=== PATIENT | male | born 1980 | race Caucasian/White ===

== ENCOUNTER 2017-09-03 11:11 | Emergency (ER) | payer BC, SELFPAY ==
[2017-09-03 11:12] VITALS: BP 125/68; PULSE 74; RESP 16; TEMP 36.2; O2SAT 99; BMI 19.2
--- NOTE | 2017-09-03 11:25 | EKG12_ITS ---
Test Reason : CP Blood Pressure : / mmHG Vent. Rate : 072 BPM Atrial Rate : 072 BPM P-R Int : 122 ms QRS Dur : 072 ms QT Int : 366 ms P-R-T Axes : 039 085 063 degrees QTc Int : 400 ms Normal sinus rhythm with sinus arrhythmia Normal ECG Confirmed by ROLA MARTIN, SILVIA ([id number]), editor greeting card AGUSTINA DE LA ROSA ([id number]) on 09/07/2017 2:49:18 PM Referred By: SEMAJ
--- NOTE | 2017-09-03 11:30 | ED.DCSUM_ITS ---
- ER Visit Summary Date of Service: 09/03/17 Chief Complaint: Chest pain with cough. History of Present Illness: The patient is a 37 M no significant past medical history the patient is a smoker. He states basically today he had left-sided chest pain primarily with coughing. Last several weeks he has not had exertional chest pain or exertional dyspnea. He has never had any cardiac history. He denies any history of DVT or PE. He has no risk factors. He denies any hemoptysis. No recent travel, surgery or mobilization. No leg swelling. Pain is by merrily with coughing. He states he is also felt fatigued recently. Physical Examination: Well-appearing middle-age male. Vital signs are stable afebrile pulse ox 90% room air no signs of hypoxia. He is in no distress. H EENT exam unremarkable. Neck nontender no JVD. Lungs coarse breath sounds with cough. No rales or rhonchi. Equal symmetrical. Heart regular rate and rhythm no murmur. Rate in the 70s. Mild left-sided chest wall discomfort. Abdomen is soft and nontender. Normal bowel sounds no peritoneal signs. He is moving all 4 extremities. Neurovascular intact. Calves are nontender without edema or cords. Back exam normal. Neurologically is awake and alert no focal deficits. Test Results: X-ray two-view shows no acute abnormality. Normal cardiac silhouette. No infiltrate. No pneumothorax. EKG sinus rhythm rate of 72 no acute abnormality. No ischemia. CBC, BMP and troponin are normal. Emergency Department Course and Treatment: Patient will undergo cardiac workup clinically I do not think this is his heart. He has a URI with a pleuritic component to it. He has no risk factors for a DVT or PE. Treatment Plan: Since history, physical exam are consistent with bronchitis with pleurisy. I do not feel this is cardiac. He and his significant other are comfortable being discharged to home. On repeat exam at 1230 is doing well. [place] better after one aerosol treatment. Disposition: Discharge Impression: Acute bronchitis with pleurisy This note was generated with [employer] dictation software. It may contain incorrect words, spelling, and punctuation that were not noted in review of the chart prior to signing ED Disposition - Plan for ED Patient: Chief Complaint: Chest Other Referrals: Ole Lobato III, MD [Primary Care Provider] -
[2017-09-03 11:38] VITALS: O2SAT 98
[2017-09-03 11:38] LABS: Absolute Lymphocyte Count 3.16 X10^3/ul (0.83-4.51); Absolute Neutrophil Count 4.7 X10^3/uL (2.0-7.7); Basophil# 0.03 X10^3/uL; Basophil% 0.3 % (0-1); Eosinophil# 0.04 X10^3/uL; Eosinophils% 0.5 % (0-5); Hematocrit 44.6 % (40-54); Hemoglobin 15.5 g/dl (13.0-16.5); Lymphocyte # 3.16 X10^3/ul (4.0); Lymphocyte % 36.2 % (19-41); Mean Corp Hgb Conc 34.8 g/gl (32-36); Mean Corpuscular Hgb 30.9 pg (27.0-32.0); Mean Platelet Vol. 8.4 fl (6.2-12.0); Monocyte# 0.79 X10^3/uL; Neutrophil # 4.69 X10^3/uL (2.7-7.7); Neutrophil % 53.8 % (47-70); Platelet Count 273 K/mm3 (150-450); RBC Distribution Width CV 12.9 % (11.6-14.6); RBC Distribution Width SD 41.8 fl (35.1-43.9); Red Blood Count 5.01 M/mm3 (4.6-6.2); White Blood Count 8.7 K/mm3 (4.4-11.0)
[2017-09-03 11:40] LABS: POSITIVE COUNT NO; POSITIVE DIFFERENTIAL NO; POSITIVE MORPHOLOGY NO
[2017-09-03] MEDS: Ipratropium/Albuterol Sulfate 3 ML AMPUL.NEB INHALATION (11:42)
[2017-09-03 11:43] VITALS: PULSE 69; RESP 10
--- NOTE | 2017-09-03 11:50 | RAD_ITS ---
STUDY: X-RAY CHEST REASON FOR EXAM: Male, 37 years old. Chest pain TECHNIQUE: PA and lateral views of the chest. COMPARISON: November 16, 2015 FINDINGS: The lungs are clear and again hyperexpanded. There is no demonstrated pleural abnormality. Normal size heart. Normal mediastinum and nuzhat. Normal visualized pulmonary arteries. Normal visualized aortic arch and descending thoracic aorta. Normal visualized thoracic spine. Normal visualized ribs, clavicles, and shoulders. There is no demonstrated abnormality of the visualized soft tissue structures of the upper abdomen. RAD/Chest PA and Lateral IMPRESSION: No acute disease is demonstrated. Electronically Signed: Gin Jauregui MD at 12:37 EDT , Service support ,
[2017-09-03 11:56] LABS: Anion Gap 5 (5-15); BUN 12 mg/dL (7-18); BUN/Creat Ratio 15.8 RATIO (10-20); Calcium,Total 8.4 mg/dL (8.5-10.1); Chloride 108 mmol/L (98-107); Creatinine, Serum 0.76 mg/dL (0.70-1.30); EST Glomerular Filtration Rate 121 mL/min (>60); Est Glom Filt Rate - Afr Amer 147 mL/min (>60); Estimated Creatinine Clearance 108.84 ml/min; Glucose 86 mg/dL (74-106); Potassium 4.3 mmol/L (3.5-5.1); Sodium Level 140 mmol/L (136-145)
[2017-09-03 12:12] VITALS: BP 106/75; PULSE 74; RESP 18; O2SAT 98
--- NOTE | 2017-09-03 12:32 | ED.DEP ---
ED Disposition - Plan for ED Patient: Disposition: Home or Assisted Living Chief Complaint: Chest Other Instructions: ED URI Viral, ED Chest Pain Pleurisy Referrals: Ole Lobato III, MD [Primary Care Provider] - 1 Week if not improving Additional Instructions: For pain and inflammation. Follow-up with not improving or return to ER feeling a lot worse. Your chest x-ray, EKG and labs were all normal today.
[2017-09-03 12:44] VITALS: BP 102/74; PULSE 67; RESP 26; O2SAT 98
== END 2017-09-03 12:48 | disposition home or self-care (01) ==
PROVIDERS: Emergency Provider Emergency Medicine; Family Provider Family Medicine; PCP Family Medicine
DX: J20.8 Acute bronchitis due to other specified organisms (principal); R09.1 Pleurisy; F17.200 Nicotine dependence, unspecified, uncomplicated
CPT/HCPCS: 71046; 80048; 84484; 85025; 93005; 94640; 99285

== ENCOUNTER 2018-08-03 00:09 | Emergency (ER) | payer OTHER, SELFPAY ==
[2018-08-03 00:11] VITALS: BP 114/80; PULSE 77; RESP 18; TEMP 36.4; O2SAT 98; BMI 19.2
--- NOTE | 2018-08-03 00:29 | RAD_ITS ---
STUDY: X-RAY - RIGHT SHOULDER REASON FOR EXAM: Male, 38 years old. PT WAS AT WORK FOR PULLING ON A CAR DOOR WHEN HE HEARD A POP AND FELT A SHARP PAIN IN NECK AND RIGHT SIDE OF UPPER BACK TECHNIQUE: 3 view(s) of the shoulder. COMPARISON: None. FINDINGS: Normal glenohumeral articulation. Normal acromioclavicular joint. Normal acromion. Normal humeral head and visualized proximal humerus. The soft tissue structures are unremarkable. Normal visualized pulmonary apex. RAD/Shoulder min 2 Views IMPRESSION: No acute osseous injury is evident. Electronically Signed: Howard Boo MD at 1:25 EDT Tel , Service support ,
--- NOTE | 2018-08-03 00:29 | ED.VISSUMM ---
- ER Visit Summary Date of Service: 08/03/18 Chief Complaint: Right shoulder and neck injury History of Present Illness: The patient is a 38 M who presents for injury to the right shoulder and neck at work. Patient states he was removing a car door and pulling with his right arm on a tool when he felt a pop in the right posterior shoulder region. He had shooting and stinging pain in the posterior right shoulder and the neck. Patient is right-handed. He denies any loss of function of the right hand. No weakness or paresthesias. Patient denies any other injuries. No chest pain or shortness of breath. Pain is worse if he moves the arm and improved with staying still. Patient did not take any medication yet for the discomfort. Physical Examination: Patient is well-nourished well-developed sitting in bed in no distress. Hemodynamically stable and afebrile. Radial pulses are 2+ and symmetric. Strength and sensation are intact all dermatomes of the upper extremities. Patient has no tenderness to palpation of the clavicles, the acromion process, the coracoid process, or over the deltoid. Patient has right-sided tenderness over the paraspinal musculature medial to the internal margin of the scapula. No tenderness to palpation over the trapezius. No midline tenderness to the neck. Neck has full active range of motion. Patient able to move the right shoulder and full range of motion. No soft tissue or bony deformities noted. Eyes are clear to auscultation bilaterally. Chest wall is nontender. Test Results: Clinical Impression(s) from Imaging Studies Shoulder X-Ray 08/03/18 00:29 IMPRESSION: No acute osseous injury is evident. Electronically Signed: Howard Boo MD at 1:25 EDT Tel , Service support , Medications Given Discontinued Medications Naproxen (Naprosyn) 500 mg PO X1 ONE Stop: 08/03/18 00:30 Last Admin: 08/03/18 00:57 Dose: 500 mg Emergency Department Course and Treatment: An x-ray was performed of the shoulder and showed no bony abnormalities including no fractures or dislocations. Patient received naproxen for pain. On reevaluation he stated he did not really notice a difference and felt better as long as he stayed still. Patient declined a prescription for a muscle relaxant for use at home. Patient was given care instructions. Worker's Comp. paperwork filled out. Patient will use kbvz-jek-adfmmvz anti-inflammatory medications as needed for pain. Patient discharged home. Treatment Plan: [] Disposition: [] Impression: Right shoulder strain This note was generated with [employer] dictation software. It may contain incorrect words, spelling, and punctuation that were not noted in review of the chart prior to signing ED Disposition - Plan for ED Patient: Disposition: Home or Assisted Living Instructions: ED Strain Muscle Ext Referrals: Ole Lobato III, MD [Primary Care Provider] - 1 Week if not improving [facility] [GROUP OF PHYSICIANS] - 1 Day Additional Instructions: Follow-up with workers comp as per your employer. Use zfsx-pdj-frvzsnt pain medication such as Tylenol, ibuprofen or naproxen as needed for pain. Ice the area of injury 3-4 times a day for 15-20 minutes at a time. If you have any worsening of your condition or any new concerning symptoms, please return immediately to the emergency department for another evaluation.
--- NOTE | 2018-08-03 00:32 | ED.DCSUM_ITS ---
- ER Visit Summary Date of Service: 08/03/18 Chief Complaint: Right shoulder and neck injury History of Present Illness: The patient is a 38 M who presents for injury to the right shoulder and neck at work. Patient states he was removing a car door and pulling with his right arm on a tool when he felt a pop in the right posterior shoulder region. He had shooting and stinging pain in the posterior right shoulder and the neck. Patient is right-handed. He denies any loss of function of the right hand. No weakness or paresthesias. Patient denies any other injuries. No chest pain or shortness of breath. Pain is worse if he moves the arm and improved with staying still. Patient did not take any medication yet for the discomfort. Physical Examination: Patient is well-nourished well-developed sitting in bed in no distress. Hemodynamically stable and afebrile. Radial pulses are 2+ and symmetric. Strength and sensation are intact all dermatomes of the upper extremities. Patient has no tenderness to palpation of the clavicles, the acromion process, the coracoid process, or over the deltoid. Patient has right-sided tenderness over the paraspinal musculature medial to the internal margin of the scapula. No tenderness to palpation over the trapezius. No midline tenderness to the neck. Neck has full active range of motion. Patient able to move the right shoulder and full range of motion. No soft tissue or bony deformities noted. Eyes are clear to auscultation bilaterally. Chest wall is nontender. Test Results: Clinical Impression(s) from Imaging Studies Shoulder X-Ray 08/03/18 00:29 IMPRESSION: No acute osseous injury is evident. Electronically Signed: Howard Boo MD at 1:25 EDT Tel , Service support , Medications Given Discontinued Medications Naproxen (Naprosyn) 500 mg PO X1 ONE Stop: 08/03/18 00:30 Last Admin: 08/03/18 00:57 Dose: 500 mg Emergency Department Course and Treatment: An x-ray was performed of the shoulder and showed no bony abnormalities including no fractures or dislocations. Patient received naproxen for pain. On reevaluation he stated he did not really notice a difference and felt better as long as he stayed still. Patient declined a prescription for a muscle relaxant for use at home. Patient was given care instructions. Worker's Comp. paperwork filled out. Patient will use plgv-ukb-jfvowiw anti-inflammatory medications as needed for pain. Patient discharged home. Treatment Plan: [] Disposition: [] Impression: Right shoulder strain This note was generated with CloudBeds dictation software. It may contain incorrect words, spelling, and punctuation that were not noted in review of the chart prior to signing ED Disposition - Plan for ED Patient: Disposition: Home or Assisted Living Instructions: ED Strain Muscle Ext Referrals: Ole Lobato III, MD [Primary Care Provider] - 1 Week if not improving [facility] [GROUP OF PHYSICIANS] - 1 Day Additional Instructions: Follow-up with workers comp as per your employer. Use zhnk-zpy-ksydmyj pain medication such as Tylenol, ibuprofen or naproxen as needed for pain. Ice the area of injury 3-4 times a day for 15-20 minutes at a time. If you have any worsening of your condition or any new concerning symptoms, please return immediately to the emergency department for another evaluation.
[2018-08-03] MEDS: Naproxen 500 MG Tablet PO (00:57)
[2018-08-03 01:46] VITALS: BP 122/75; PULSE 70; RESP 14; O2SAT 98
== END 2018-08-03 01:58 | disposition home or self-care (01) ==
PROVIDERS: Emergency Provider Emergency Medicine; Family Provider Family Medicine; PCP Family Medicine
DX: S46.911A Strain of unspecified muscle, fascia and tendon at shoulder and upper arm level, right arm, initial encounter (principal); X50.9XXA Other and unspecified overexertion or strenuous movements or postures, initial encounter; Y93.89 Activity, other specified; Y92.9 Unspecified place or not applicable; Y99.0 Civilian activity done for income or pay; Z72.0 Tobacco use
CPT/HCPCS: 73030; 99283

== ENCOUNTER → 2021-02-04 | Outpatient (CLI) | payer OTHER, SELFPAY | END | disposition home or self-care (01) | LOC: LABSPEC 15:06 | PROVIDERS: PCP Family Medicine; Referring Provider Physician Assistant Surgical; Visit Provider Physician Assistant Surgical | DX: Z20.822 Contact with and (suspected) exposure to COVID-19 (principal) | CPT/HCPCS: 87635; U0005; U0003 ==

== ENCOUNTER 2021-06-12 15:24 | Outpatient (CLI) | payer OTHER, MEDICAID, SELFPAY ==
--- NOTE | 2021-06-12 15:27 | MRI_ITS ---
EXAM: MR CERVICAL SPINE WITHOUT INTRAVENOUS CONTRAST CLINICAL INDICATION: pain into R arm, pins and needles TECHNIQUE: Multiplanar and multisequence MR images of the cervical spine without intravenous contrast were performed. This report was created using [employer] report generation technology. COMPARISON: XR 05/27/2021 FINDINGS: VERTEBRAE: There is mild straightening of the normal cervical lordosis. This can suggest neck strain. SPINAL CORD: Unremarkable in signal and morphology. SOFT TISSUES: Unremarkable. No prevertebral soft tissue swelling. LYMPH NODES: Unremarkable. There is no cervical adenopathy. DISCS/SPINAL CANAL/NEURAL FORAMINA: C2-C3: C2-3: Normal endplates. Normal disc height and morphology. Normal central canal and intervertebral neuroforamina. Posterior disc bulge. C3-C4: C3-4: Normal endplates. Normal disc height and morphology. Normal central canal and intervertebral neuroforamina.Posterior disc bulge. C4-C5: C4-5: Loss of intervertebral disc height. There is endplate spondylosis of the vertebral body. Normal central canal and intervertebral neuroforamina. There is bilateral facet arthropathy. Posterior disc disc herniation. No spinal stenosis. Mild impression upon anterior thecal sac. C5-C6: C5-6: Loss of intervertebral disc height. There is endplate spondylosis of the vertebral body. Normal central canal and intervertebral neuroforamina. There is bilateral facet arthropathy. Posterior disc disc herniation. No spinal stenosis. Mild impression upon anterior thecal sac. C6-C7: Unremarkable. Normal disc height and morphology. Normal spinal canal and neuroforamina. C7-T1: Unremarkable. Normal disc height and morphology. Normal spinal canal and neuroforamina. MRI/Spine Cervical (Routine) IMPRESSION: 1. C4-5: Loss of intervertebral disc height. There is endplate spondylosis of the vertebral body. Normal central canal and intervertebral neuroforamina. There is bilateral facet arthropathy. Posterior disc disc herniation. No spinal stenosis. Mild impression upon anterior thecal sac. 2. C5-6: Loss of intervertebral disc height. There is endplate spondylosis of the vertebral body. Normal central canal and intervertebral neuroforamina. There is bilateral facet arthropathy. Posterior disc disc herniation. No spinal stenosis. Mild impression upon anterior thecal sac. 3. There is mild straightening of the normal cervical lordosis. This can suggest neck strain. Electronically Signed: Kenny Real MD at 21:40 EST ,
== END 2021-06-12 23:59 | disposition short-term general hospital (02) ==
LOC: MRI 15:27
PROVIDERS: Visit Provider Orthopaedic Surgery
DX: M47.22 Other spondylosis with radiculopathy, cervical region (principal); M46.92 Unspecified inflammatory spondylopathy, cervical region; M50.121 Cervical disc disorder at C4-C5 level with radiculopathy
CPT/HCPCS: 72141

== ENCOUNTER 2021-07-04 10:52 | Inpatient (IN) | payer OTHER, MEDICAID, SELFPAY ==
--- NOTE | 2021-06-27 12:57 | EKG12_ITS ---
Test Reason : PRE-OP Blood Pressure : / mmHG Vent. Rate : 068 BPM Atrial Rate : 068 BPM P-R Int : 124 ms QRS Dur : 078 ms QT Int : 368 ms P-R-T Axes : 042 075 059 degrees QTc Int : 391 ms Normal sinus rhythm Normal ECG Confirmed by ROLA MARTIN, SILVIA ([id number]), web content editor ISHMAEL LESLIE ([id number]) on 06/28/2021 10:57:01 AM Referred By: Jerman Johnson Confirmed By:SILVIA CANELA MD
[2021-06-27 13:56] LABS: Absolute Lymphocyte Count 3.22 X10^3/uL (0.83-4.51); Absolute Neutrophil Count 6.3 X10^3/uL (2.0-7.7); Basophil# 0.05 X10^3/uL; Basophil% 0.5 % (0-1); Eosinophils% 0.9 % (0-5); Hematocrit 42.8 % (40-54); Hemoglobin 15.1 g/dL (13.0-16.5); Lymphocyte # 3.22 X10^3/ul (0.83-4.51); Lymphocyte % 30.5 % (19-41); Mean Corp Hgb Conc 35.3 g/dL (32-36); Mean Corpuscular Hgb 31.3 pg (27.0-32.0); Mean Corpuscular Volume 88.8 fL (80-94); Mean Platelet Vol. 9.2 fl (6.2-12.0); Monocyte# 0.81 X10^3/uL; Monocyte% 7.7 % (0-10); NRBC Flagged by Analyzer 0 % (0-5); Neutrophil # 6.33 X10^3/uL (2.7-7.7); Platelet Count 276 K/mm3 (150-450); RBC Distribution Width CV 12.8 % (11.6-14.6); RBC Distribution Width SD 41.9 fl (35.1-43.9); Red Blood Count 4.82 M/mm3 (4.6-6.2); White Blood Count 10.6 K/mm3 (4.4-11.0)
[2021-06-27 14:16] LABS: Anion Gap 1 (5-15); BUN 13 mg/dL (7-18); BUN/Creat Ratio 17.9 RATIO (10-20); Calcium,Total 8.6 mg/dL (8.5-10.1); Chloride 109 mmol/L (98-107); Creatinine, Serum 0.73 mg/dL (0.70-1.30); EST Glomerular Filtration Rate 125 mL/min (>60); Est Glom Filt Rate - Afr Amer 151 mL/min (>60); Glucose 68 mg/dL (74-106); Potassium 3.9 mmol/L (3.5-5.1); Sodium Level 141 mmol/L (136-145)
[2021-06-27 15:07] LABS: HIV - WCH Non-Reactive (Nonreactive); Hepatitis B Surface Antibody Non-Reactive; Hepatitis C Antibody Non-Reactive (Nonreactive)
[2021-06-29 08:10] LABS: MG Sendout 2.4 mg/dL (1.6-2.3)
[2021-06-29 09:47] LABS: Hepatitis A AB, Total Negative (Negative)
--- NOTE | 2021-07-03 08:36 | HP.PCM_ITS ---
History and Physical Date of Admission: 07/04/21 [facility] [id number] [phone] OFFICE VISITDate of Service: 05/27/21 MR#:[id number]:[id number]: FRANCHESKA DE LA ROSA #:[id number] Provider:Dr. Jerman Johnson, Age/Sex: 41/M Location:[place]:Signed Intake Intake Visit Reasons: CERVICAL SPINE Chief Complaint: Sebaceous cyst of the scrotum Allergies No Known Allergies Allergy (Verified 04/29/21 15:32) [facility] Cervical radiculopathy Cervical strain Sebaceous cyst of scrotum Social History Smoking Status: Current every day smoker HPI CERVICAL SPINE Details: Parts of this documentation were recorded by a scribe, this documentation accurately reflects the service provided and the decisions made by me, Dr. Jerman Johnson, 05/27/21 0378. FRANCHESKA DE LA ROSA is a 41 year old M NEW Pt here today for right cervical pain x 1 year. Pt states pain radiates down into thoracic and lumber region of back. Pain radiates down into arm and fingers and occasionally radiates down to toes. Pt does have numbness and tingling down arm into fingers and occasionally down into toes. Pt denies PT. Pt has been performing neck exercises at home. Pt denies special needs child caregiver. Pt has mechanical pain in right shoulder. Pt denies using pain patches. Pt takes Ibuprofen PRN with minimal relief. Pt states he was given a muscle relaxer and Medrol dose back, both were ineffective. Pt states taking hot baths helps relieve some of the pain. Pt states he had steroid injection 5-6 years ago. Shows a pleasant young man 41 years old and has chief complaint of pain in the right side of his neck that radiates down the right arm. Seems to be either a CT 6 or perhaps to see 7 radiculopathy. This has been going on now for some time. He denies any bowel or bladder dysfunction. He denies history of unexplained weight loss night fever sweats or chills. On examination he has pain with extension but also with flexion of his cervical spine. He has a questionable Macie's to the right side. He has reasonable motor strength of all the major muscle groups of both upper extremities. He has 1+ triceps 1+ biceps and absent brachioradialis reflexes bilaterally. He has no muscle atrophy. He has no long tract signs. Clonus is absent Babinski's are downgoing. X-rays demonstrate that he has a decreased disc space at C5-6 otherwise relatively unremarkable. This has been going on long enough now that it is time to proceed with an MRI scan of the cervical spine. He probably has a herniation at C5-6. I will see him after the MRI scan and make further recommendations. Coding Level of Care Code Off vis,new,level 3 Diagnoses Cervical radiculopathy M54.12 Time Spent (min) 30 Assessment and Plan Assessment and Plan (1) Cervical radiculopathy:
[2021-07-04] VITALS (11 sets, daily range): BP systolic 105–114; BP diastolic 60–74; PULSE 69–92; RESP 15–19; TEMP 36.6–37.5; O2SAT 65–100; BMI 21.1
[2021-07-04] MEDS: Lactated Ringers 1,000 ML 15 ML IV ×3 (09:14→12:45)
[2021-07-04] MEDS: Acetaminophen 500 MG Tablet 1000 MG PO (09:15)
[2021-07-04] MEDS: dexAMETHasone 10 MG/ML Vial 8 MG PO.IVFORM (09:15)
[2021-07-04 09:30] LABS: Bedside Glucose 84 mg/dL (70-110)
--- NOTE | 2021-07-04 10:45 | RAD_ITS ---
STUDY: X-RAY - LUMBAR SPINE REASON FOR EXAM: Male, 41 years old. ANTERIOR FUSION C4-5, C5-6 TECHNIQUE: Single lateral view(s) of the lumbar spine were obtained. COMPARISON: None FINDINGS: The localization needle is seen anterior to the C5-C6 disc space level. RAD/Spine 1 View Any Level IMPRESSION: The localization instrument is seen anterior aspect of the C5-C6 disc space level. Electronically Signed: Obdulio Winn MD at 14:18 EST ,
--- NOTE | 2021-07-04 10:45 | DISC_PTH ---
PATIENT: FRANCHESKA DE LA ROSA LOC: [facility]3 U#:[id number] AGE/SX: 41/M ROOM: [facility]315 RE07/04/[address]: Dr. Jerman Johnson DO : 1980 BED: 1 DIS: 07/05/2021 SPEC #: [id number] RECD: 07/04/21 15:53 STATUS: RATNA REChance #: [id number] REAL: 07/04/21 10:[address]: Jerman Johnson DEPT: SURGICAL PATHOLOGY RECD BY: Renetta Pritchett ENTERED: 07/05/21 09:11 SP TYPE: DISC OTHR DR: No Primary Care Phys Tissues: Intervertebral disc, NOS Procedures: Surgery Specimen Level III HEADER OPERATION: ERAS, anterior cervical fusion C5-6, C4-5 PRE-OP DIAGNOSIS: Cervical radiculopathy TISSUE SUBMITTED: Cervical disc C4-5, C5-6 MICROSCOPIC DIAGNOSIS Cervical disc C4-5 and C5-6: Fragments of fibrocartilaginous tissue with focal degenerative changes and bone. REBECCA:beryl 07/09/2021 MICROSCOPIC DESCRIPTION Slides are reviewed. GROSS DESCRIPTION Received in fixative is one container labeled with the patient's name and designated cervical disc C4-5, C5-6. The specimen consists of multiple pieces of rajan, indurated tissue that in aggregate measure 5.5 x 5 x 1.5 cm. Central Office Operator Supervisor tissue is submitted in two cassettes. / REBECCA:beryl 07/05/2021 TC:5 CPT: 49755
[2021-07-04] MEDS: dexAMETHasone 4 MG/ML Vial 8 MG IV (11:00)
[2021-07-04] MEDS: Cefazolin 2 GM in 0.9% Normal Saline 100 ML IV (11:35)
[2021-07-04] MEDS: Heparin 10,000 UNITS/10 ML Vial 10000 UNITS (12:00)
[2021-07-04] MEDS: THROMBIN (RECOMBINANT) 20,000 UNIT VIAL 20000 UNIT TOPICAL (12:00)
--- NOTE | 2021-07-04 12:45 | RAD_ITS ---
STUDY: X-RAY - CERVICAL SPINE REASON FOR EXAM: Male, 41 years old. FUSION, C4-5, C5-6 TECHNIQUE: Single lateral view(s) of the cervical spine were obtained. COMPARISON: None FINDINGS: Localization instrument is seen along the anterior aspect of the C5-C6 disc space level. RAD/Spine 1 View Any Level IMPRESSION: Localization instrument is seen along the anterior aspect of the C5-C6 level. Electronically Signed: Obduilo Winn MD at 14:21 EST ,
--- NOTE | 2021-07-04 12:59 | RAD_ITS ---
STUDY: X-RAY - LUMBAR SPINE REASON FOR EXAM: Male, 41 years old. POSITION CHECK #3 TECHNIQUE: 1 view(s) of the lumbar spine were obtained. COMPARISON: Comparison is made with prior study done earlier today. FINDINGS: The patient is status post anterior fusion at the C4-C5 and C5-C6 levels with prosthetic disc placement. RAD/Spine 1 View Any Level IMPRESSION: Status post anterior fusion and prosthetic disc placement at the C4-C5 and C5-C6 levels. Electronically Signed: Obdulio Winn MD at 15:00 EST ,
--- NOTE | 2021-07-04 15:04 | OP.PCM_ITS ---
Report of Operation Date of Procedure: 07/04/21 Description of Surgical Findings:: Preoperative diagnosis: Herniated disc C5-6 and C4-5 Postoperative diagnosis: The same Procedures: #1 anterior cervical fusion C5-6 CPT code 20074 #2 application of anterior spine plate C4-C6 CPT code 00286/59 #3 anterior interbody fusion C4-5 CPT code 34127/51 #4 insertion of titanium cage C5-6 CPT code 46936 #5 insertion of titanium cage C4-5 CPT code 14770/51 Surgeon: Dr. Johnson activity assistant: Joselo ESCOBAR and Kimi Rock NP Anesthesia: General endotracheal anesthesia administered by [facility] EBL: Less than 20 cc Drains: 1/4 inch [place] Complications: None Procedure: Patient was taken to the OR where he was placed in the supine position on the operating table. He was placed under general endotracheal anesthesia. Kerlix was tied to 1 wrist around the feet and to the other wrist on the volar side. This is for pulling purposes if necessary. A Rodriguez catheter was inserted. Neuro monitoring placed their leads on the patient. A roll was placed at the top of the shoulders to gently extend his neck. The neck and the right crest were then prepped and draped in the standard fashion. Note that a preoperative x-ray had been taken with a needle marker in place and the skin marked with a small laceration using the end of a needle. That was the point that I would start the incision. I then did in fact with the incision and longer's lines starting at that point subcutaneous tissues were incised the length of skin incision I undermined the subcutaneous tissues off of the platysma cephalad and caudad. The platysma was then split longitudinally in line with its fibers. Then but began opening other fascial planes including first the superficial cervical fascia followed by the exploitation of the pretracheal fascia. In this fashion I was able to retract the midline structur es that is the trachea and esophagus to the left and the carotid sheath and sternocleidomastoid to the right. This gave me good access to the anterior longitudinal ligament overlying the space thought to be C5-6. Then opened the anterior longitudinal ligament identified the disc space placed a needle in place I took an intraoperative x-ray that concluded that we were in fact at C5-6 as the needle was removed we then marked the annulus with cautery. Then cauterized the longus coli muscles on either side elevated them gently off the disc space followed by the application of the belt builder helper retractors from side to side under the coli and up and down to give me good access to the C5-6 space I cut the anterior annulus with a 15 blade removed it and removed more nucleus from within the disc space with pituitary rongeurs. I then moved all the cartilage off both endplates using sharp angled we then checked the curettes. Using the venkat bur I then burred the uncinate process on the right side. This was a technique whereby I would bur followed by the instillation of cold saline to prevent any thermal damage to the base of the C6 nerve root. This was done repeatedly until it was a very thin shell of bone which I then removed using small curettes. This was done this completely open the foramen and I checked the foramen along with the C6 nerve with a nerve probe was found to be quite open. I then removed any remaining cartilage off both endplates and used the bur to flatten the sides to allow for a larger cage. Took her measurements for a cage and found that we needed a 9 mm high cage on this patient. We used a 14-1/2 x 16 mm cage that was a larger size. Note that earlier in the case we obtained bone marrow aspirate from the right iliac crest through a Jamshidi needle. We were able to obtain 60 cc that was then handed off to the voice and data technician who spun the blood down the stem cells from the rest of the cells and concentrated them 8-10 times. I then used a spongy demineralized bone matrix the 9 mm cage. It was then soaked in the patient's own stem cells this was then tamped into place when anesthesia pulling on the head countersunk 2 or 3 mm. We then removed our instrumentation and moved up to the next level C4-5. The Cloward retractors I was able to see the space I cauterized both coli muscles on either side and put the same instruments back in place. This gave us good access to the C4-5 space I cut the anterior annulus with a 15 blade removed it and removed more nucleus from within the disc space we used curettes again to remove all the cartilage off both endplates. Again I use the venkat bur to bur the right uncinate process which was not near as tight as the 5 6 level but once that was done I removed the remaining shell of bone completely decompressing the C5 nerve root on the right side also. We then took her measurements for these this next cage. Found that we could use a large 8 mm high cage the cage again was filled with spongy demineralized bone matrix that was soaked in the patient's own concentrated stem cells it was then tamped into place and countersunk 2 to 3 mm. A 45 mm plate was then measured was found to be the right size. I did bend it into a little bit more lordosis than it came. Once we had it centered a locking pin was put in place first to hold it followed by an awl to punch a hole on the opposite side at C5. The screw was entered and credit or loans officer below the locking mechanism of the Spyder plate we then placed 2 screws likewise into C6 again using the awl first and then lastly we did the 2 into C4. The locking pin L5 was removed and replaced with another 14 mm screw. Used 14 mm screws at all 6 points of the 45 mm plate. Then observe this on the lateral x-ray that was taken intraoperatively was found to be very satisfactory with good position of the cages the screws and the plate. Amnionic membrane was then placed over the plate to prevent adhesions to the trachea or esophagus. 1/4 inch [place] drain was inserted we then closed the platysma running fashion with 5-0 Vicryl. We then closed subcutaneous tissues with 5-0 Vicryl in interrupted fashion. This approximated the skin a safety pin was placed through the drain and sterile dressings were applied.. The patient was then recovered in the OR moved to his hospital bed and taken to recovery in satisfactory condition. This is the end of operative summary on Viktor Silveira. This is Dr. Johnson dictating.
--- NOTE | 2021-07-04 16:04 | SUR.PHASEI ---
patient monitored on etCO2 nasal cannula per eras protocol.
--- NOTE | 2021-07-04 16:23 | SUR.PHASEI ---
Siphoner called to update , patient resting comfortably in pacu.
--- NOTE | 2021-07-04 17:32 | NURSING ---
did not received COVID vaccine s
[2021-07-04] MEDS: Morphine 2 MG/ML Syringe IV ×2 (18:40→22:58)
[2021-07-04] MEDS: dexAMETHasone 4 MG/ML Vial IV ×2 (18:41→23:00)
[2021-07-04] MEDS: Ensure Surgery 237 ML LIQUID PO (18:41)
[2021-07-04] MEDS: Cefazolin 1 GM/50 ML BAG IV (20:08)
[2021-07-04] MEDS: oxyCODONE 5 MG Tablet PO (20:08)
[2021-07-04] MEDS: Lactated Ringers 1,000 ML 100 ML IV (22:00)
--- NOTE | 2021-07-04 22:30 | NURSING ---
Pt up and out of bed. Patient ambulated around room with staff standing by. No complaints from patient. Pt ambulated well. Pt now in recliner in room. Call light within reach.
[2021-07-04] MEDS: 0.9% Saline Lock 10 ML Syringe IV (22:59)
[2021-07-05] MEDS: Cefazolin 1 GM/50 ML BAG IV (02:36)
[2021-07-05 02:46] VITALS: BP 105/62; PULSE 77; RESP 16; TEMP 36.7; O2SAT 94
[2021-07-05] MEDS: Morphine 2 MG/ML Syringe IV (02:47)
[2021-07-05] MEDS: 0.9% Saline Lock 10 ML Syringe IV ×2 (02:48→05:50)
[2021-07-05] MEDS: dexAMETHasone 4 MG/ML Vial 2 MG IV ×2 (05:49→11:59)
[2021-07-05] MEDS: Morphine 4 MG/ML Syringe IV (07:31)
[2021-07-05 07:33] VITALS: BP 110/72; PULSE 73; RESP 14; TEMP 36.7; O2SAT 95
[2021-07-05] MEDS: oxyCODONE 5 MG Tablet PO (10:02)
--- NOTE | 2021-07-05 12:24 | PCM.DC ---
Discharge Instructions Follow Up Care Test Results: Test results from this visit will be discussed in further detail at your follow-up appointment, if applicable. Discharge Plan Admission Admit Date/Time: 07/04/21 10:52 Primary Reason for Your Visit: surgery Attending Provider: Jerman Johnson Primary Care Provider: Tabatha Bro Primary Discharge Orders/Prescriptions Prescriptions: No Action ibuprofen [Advil] 200 mg Tablet 400 mg PO Q6H PRN (Reason: Pain) RF: 0 Other Ambulatory Orders: Magnesium (Routine) Timeframe: [id number] Facility: [facility] - Location: Laboratory Ordered By: Dr. Rajeev Easley Referrals / Follow Up: Care Physician,No Primary [Primary Care Provider] - Disposition Disposition (needs filled in before D/C Order can be placed): Home, Self Care
--- NOTE | 2021-07-05 12:25 | CASEMGMT ---
CHANDRAKANT ELLIS Assessment: Face to Face with pt for initial transition planning/care coordination assessment. RN CALEB introduced self and role at [facility], pt voices understanding and consents to assessment. Pt is A/O x4 and answers all questions appropriately at this time. Pt sitting up in chair with at bedside. Care providers, pharmacy, and demographics verified/updated. Admitting Dx: anterior cervical fusion C5-6, C4-5 PCP:No PCP, pt reports he has a list of in network PCP's and he does not need a healthcare provider directory Specialists: Alex spine surgeon Preferred Pharmacy: [facility] Insurance: [employer] Prescription Benefit: yes LW/HPOA: Pt denies having a LW/DPOA and denies need for info regarding AD. LNOK: Carol Silveira, Living Arrangements: Pt lives with and 5 children in a two story house with 2 steps to enter with a rail. Pt reports he is I in ADL's and denies concerns at home. Transportation: Pt drives self and denies concerns with transportation. DME/HHC/SNF: Pt denies having any DME in the home, previous HHC or SNF stays. Pt states no concerns with going home at time of dc. Pt has been ambulating the halls without difficulty. Pt states no further concerns/needs. CM to follow. Advised pt to ask CM if any further question/concerns/needs arise, voices understanding. Pt Goal: Home Plan: Home
--- NOTE | 2021-07-05 12:26 | DS.PCM_ITS ---
Providers Date of Admission: 07/04/21 Primary Care Physician: No Primary Care Phys Reason For Visit: ANTERIOR CERVICAL FUSION C5-6, C4-5 Medications at Discharge Home Medications ibuprofen [Advil] 400 mg PO Q6H PRN 06/26/21 Hospital Course Summary of Care Provided Hospital Course: Viktor Silveira was admitted on July 04, yesterday. He has been discharged today July 05. Admitting diagnosis herniated disc C5-6 with severe right C6 radiculopathy. Postoperative diagnoses are the same. Consultations while the hospital he was managed by the hospitalist disease intervention specialist. Discharge his voice is clear I change his dressing and remove the drain. The incision is healing well. He reports that his right arm pain is completely resolved. He is very pleased with his outcome as I am to. I gave him directions regarding his activities. That includes returning to work in about 3 months. He already has an appointment to see me in the office. He can take shower 4 days from now and remove the dressing the day before that. He is to leave it uncovered thereafter. I answered all his questions I will see him again in my office. This is the end of discharge summary on Viktor Silveira. This Dr. Johnson dictating. Weight / BMI Weight Weight: 143 lb 4.807 oz Body Mass Index (BMI) 21.1 ABG / Lab / Microbiology Data Result Diagrams: 06/27/21 13:11 06/27/21 13:11 Microbiology: Microbiology 07/03/21 13:00 Interface Orders SARS-CoV-2 Antigen (Rapid) - Final 06/27/21 13:11 Swab (Method) Nasal Screen MRSA/MSSA - Final Radiography Diagnostic Testing: Radiology Impression Spine X-Ray 07/04/21 10:45 IMPRESSION: The localization instrument is seen anterior aspect of the C5-C6 disc space level. Electronically Signed: Obdulio Winn MD at 14:18 EST , Spine X-Ray 07/04/21 12:45 IMPRESSION: Localization instrument is seen along the anterior aspect of the C5-C6 level. Electronically Signed: Obdulio Winn MD at 14:21 EST , Spine X-Ray 07/04/21 12:59 IMPRESSION: Status post anterior fusion and prosthetic disc placement at the C4-C5 and C5-C6 levels. Electronically Signed: Obdulio Winn MD at 15:00 EST , Meaningful Use Info Meaningful Use Diagnoses (Choose all that apply): None applicable Discharge Plan Admission Admit Date/Time: 07/04/21 10:52 Primary Reason for Your Visit: surgery Attending Provider: Jerman Johnson Primary Care Provider: Care Physician,No Primary Discharge Orders/Prescriptions Prescriptions: No Action ibuprofen [Advil] 200 mg Tablet 400 mg PO Q6H PRN (Reason: Pain) RF: 0 Other Ambulatory Orders: Magnesium (Routine) Timeframe: [id number] Facility: [facility] - Location: Laboratory Ordered By: Dr. Rajeev Easley Referrals / Follow Up: Care Physician,No Primary [Primary Care Provider] - Disposition Disposition (needs filled in before D/C Order can be placed): Home, Self Care
[2021-07-05] MEDS: BENZOCAINE/MENTHOL 1 LOZENGE MUCOUS MEM (13:02)
== END 2021-07-05 13:28 | disposition home or self-care (01) | DRG 473 ==
PROVIDERS: Admitting Provider Orthopaedic Surgery; Referring Provider Orthopaedic Surgery; Visit Provider Orthopaedic Surgery
PROC: (CPT 22551; principal; 2021-07-04 10:15)
DX: M50.121 Cervical disc disorder at C4-C5 level with radiculopathy (principal); F17.200 Nicotine dependence, unspecified, uncomplicated
CPT/HCPCS: 36415; 72020; 80048; 82962; 83735; 85025; 86703; 86706; 86708; 86803; 87081; 87426; 88304; 93005; 97161; 99251; C1713; C9803; J7120; A4216; G0463; J2405

== ENCOUNTER 2021-09-16 16:12 | Observation (INO) | payer OTHER, MEDICAID, SELFPAY ==
[2021-09-16] VITALS (8 sets, daily range): BP systolic 103–133; BP diastolic 68–84; PULSE 60–80; RESP 16–18; TEMP 2.6–37; O2SAT 97–98; BMI 20.5; BMI 20.2
--- NOTE | 2021-09-16 16:22 | EKG12_ITS ---
Test Reason : Blood Pressure : / mmHG Vent. Rate : 068 BPM Atrial Rate : 068 BPM P-R Int : 118 ms QRS Dur : 090 ms QT Int : 394 ms P-R-T Axes : 045 084 069 degrees QTc Int : 418 ms Normal sinus rhythm Normal ECG Confirmed by KAMERON RADFORD MD ([id number]), purchasing expeditor ISHMAEL LESLIE ([id number]) on 09/18/2021 9:39:17 AM Referred By: STEPHANIE Confirmed By:KAMERON RADFORD MD
--- NOTE | 2021-09-16 16:33 | RAD_ITS ---
STUDY: X-RAY CHEST REASON FOR EXAM: Male, 41 years old. chest pain TECHNIQUE: AP COMPARISON: None. FINDINGS: EKG leads project over the chest. The lungs are clear and expanded. There is no demonstrated pleural abnormality. Normal size heart. Normal mediastinum and nuzhat. Normal visualized pulmonary arteries. Normal visualized aortic arch and descending thoracic aorta. Normal visualized thoracic spine. Normal visualized ribs, clavicles, and shoulders. There is no demonstrated abnormality of the visualized soft tissue structures of the upper abdomen. RAD/Chest 1 View (Portable) IMPRESSION: Nonacute portable x-ray examination of the chest. Electronically Signed: Qamar Fenton MD ([place]oks) at 16:44 EDT ,
[2021-09-16] MEDS: Aspirin 81 MG TAB.CHEW 324 MG PO (16:34)
[2021-09-16 16:54] LABS: Absolute Lymphocyte Count 2.94 X10^3/uL (0.83-4.51); Absolute Neutrophil Count 8.5 X10^3/uL (2.0-7.7); Basophil# 0.06 X10^3/uL; Basophil% 0.5 % (0-1); Eosinophil# 0.05 X10^3/uL; Eosinophils% 0.4 % (0-5); Hematocrit 43.8 % (40-54); Hemoglobin 15.4 g/dL (13.0-16.5); Lymphocyte # 2.94 X10^3/ul (0.83-4.51); Lymphocyte % 23.8 % (19-41); Mean Corp Hgb Conc 35.2 g/dL (32-36); Mean Corpuscular Hgb 30.6 pg (27.0-32.0); Mean Corpuscular Volume 86.9 fL (80-94); Mean Platelet Vol. 8.7 fl (6.2-12.0); Monocyte# 0.73 X10^3/uL; Monocyte% 5.9 % (0-10); NRBC Flagged by Analyzer 0 % (0-5); Neutrophil # 8.51 X10^3/uL (2.7-7.7); Neutrophil % 68.9 % (47-70); Platelet Count 342 K/mm3 (150-450); RBC Distribution Width CV 12.8 % (11.6-14.6); RBC Distribution Width SD 40.4 fl (35.1-43.9); Red Blood Count 5.04 M/mm3 (4.6-6.2); White Blood Count 12.4 K/mm3 (4.4-11.0)
--- NOTE | 2021-09-16 16:54 | ED.VIS.CHEST ---
HPI History of Present Illness Chief Complaint: Chest Pain Informant: patient Onset/Context/Timing Onset: Weeks Activity at onset: sudden Timing: Intermittent Quality: Positive for Aching, Sharp and Stabbing Location: Substernal and Left Chest Current Severity: Mild Maximum Severity: Moderate Worsened By: Exertion Relieved By: Rest Associated Symptoms: Positive for Nausea and Dyspnea; Negative for Vomiting, Diaphoresis, Cough, Fever, Lightheadedness, Acid Reflux and Palpitations Narrative Narrative: 41-year-old male no seen past medical history. In June had a spinal fusion surgery done of his neck. For last 3 weeks he has had left-sided chest pain. Associated with exertion. Associated with exertional dyspnea and nausea. Describes it as sharp and stabbing midsternal and left side of his chest. No cardiac history. No prior evaluation or work-up for cardiac or chest pain of any type. He denies any leg pain or swelling. No hemoptysis. Prior Similar Symptoms: No Recent Illness/Hospitalization: Yes CVD Risk Factors: Positive for Smoking; Negative for Hypertension, Diabetes, Hypercholesterolemia and Family History 1' </=55 PE Risk Factors: Positive for Recent Immobilization; Negative for Recent Travel/Surgery, Prior DVT or PE, Cancer and OCP + Smoking + >/=35 TAD Risk Factors: Negative for Marfan's Syndrome and Hypertension PFSH [facility] Medical History Alcohol use Anxiety Arthritis Back pain Cervical radiculopathy Cervical strain Depression Heartburn Hx of foreign body in auditory canal Injury of head and neck Leg cramps Marijuana use Restless legs Sebaceous cyst of scrotum Smoker Syncope Home Medications NK 09/16/21 [History Last Taken Unknown] Allergy/AdvReac Type Severity Reaction Status Date / Time No Known Allergies Allergy Verified 09/16/21 16:14 Surgical History History of spinal surgery Social History Smoking Status: Current every day smoker tobacco type: cigarettes Smoking packs per day: 2 Smoking cigarettes per day: 40.0 Years smoked: 25 Smoking pack-years: 50.00 ROS ROS ED ROS Narrative Chest pain. Shortness of breath. Nausea. Review of Systems ROS Unobtainable: Denies due to encephalopathy Constitutional Constitutional ED: Denies fever(s) Eyes Eyes: Denies none ENT ENT ED: Denies ear pain Cardiovascular Cardiovascular: Reports as per HPI and chest pain; Denies palpitations or racing heartbeat Respiratory/Chest Respiratory/Chest: Reports dyspnea and dyspnea on exertion; Denies cough or sputum Gastrointestinal Gastrointestinal: Reports nausea; Denies abdominal pain, constipation, diarrhea or melena Genitourinary Genitourinary ED: Denies dysuria Musculoskeletal Musculoskeletal: Denies myalgias Integumentary Denies rash Neurologic Neurologic: Denies headache(s) Psychiatric Psychiatric: Denies depression Endocrine Endocrinology: Denies polyuria Hematologic/Lymphatic Hematologic/Lymphatic: Denies easy bruising Allergic/Immunologic Allergic/Immunologic ED: Denies urticaria EXAM Physical Exam Narrative Exam Narrative: 41 male no acute distress vital signs stable afebrile. Pulse ox 90% room air no hypoxia. HEENT exam unremarkable. Neck nontender no JVD. Lungs clear to auscultation bilaterally. Heart regular rhythm no murmur. Chest wall nontender. Abdomen soft nontender. Moving all 4 extremities. Equal symmetrical radial pulses. Calves nontender without edema or cords. Const Vital Signs: 09/16/21 16:13 09/16/21 16:30 09/16/21 17:00 Temperature 97.5 F L Temperature Source Temporal Pulse Rate 80 63 61 Respiratory Rate 18 18 16 Respiratory Effort Normal Non-Labored Blood Pressure 133/76 H 119/81 H 116/84 H Blood Pressure Mean 95 93 94 Pulse Ox 98 97 Oxygen Delivery Method Room Air Room Air Positive well nourished and well developed; Negative for obese, cachectic, contractures or unkempt General Appearance ED: well developed and NAD; Negative for unkempt, cachectic, contractures or pallor Nutritional Appearance: Negative for cachectic or obese HEENT Reports moist mucous membranes normocephalic and atraumatic; Negative for trauma or tenderness Eyes PERRL and EOMs intact bilaterally Neck no lymphadenopathy, supple and no JVD General: Negative for tenderness Chest Wall inspection of chest normal and palpation of chest normal Chest: Negative for tenderness Resp normal respiratory effort and clear to auscultation bilaterally Effort and Inspection: respiratory distress Auscultation: Negative for rales, rhonchi or wheezes Cardio regular rate, regular rhythm, S1 normal heart sound, S2 normal heart sound and no murmurs Rate: Negative for bradycardia or tachycardic Rhythm: Negative for abnormal rhythm GI normal to inspection, nondistended, normoactive bowel sounds, soft to palpation, non-tender, non-distended and no masses; Negative for hepatosplenomegaly Auscultation: Negative for hyperactive bowel sounds Palpation: Negative for splenomegaly Back/Spine no CVA tenderness and no thoracic nor lumbar tenderness General Back: Negative for CVA tenderness Cervical Spine: Negative for cervical spine tenderness Extremity normal to inspection General Extremety ED: Negative for edema, pulses abnormal or tenderness General Extremity: Negative for edema or pulses abnormal Neuro oriented x3 Sensorium / Orientation: awake, alert, oriented to person, oriented to place and oriented to time Motor Exam: strength 5/5 throughout Psych mental status grossly normal Appearance: Negative for unkempt Mood & Affect: Negative for depressed or tearful Skin no rashes or lesions noted and no wounds General Skin Exam: Negative for jaundice or pallor Heart Score History: Highly Suspicious ECG: Normal Age: </= 45 years Risk Factors: 1 or 2 Risk Factors Troponin: </= Normal Limit Score: 3 MDM MDM MDM Narrative Medical decision making narrative: 41-year-old male smoker with exertional chest pain exertional dyspnea. He did have recent surgery my clinical suspicion for this being a PE is actually low. This is concerning for exertional angina. Patient undergo a cardiac work-up and be admitted. For further evaluation. I am checking a D-dimer due to his recent surgery. Repeat exam patient is doing well. He will be admitted for further work-up for chest pain of uncertain etiology. Lab Data Attestation: I reviewed the patient's lab results. Lab results narrative: CBC shows a white count 12.4 H&H 15 and 43. D-dimer is negative at less than 0.27. Chemistries show a gap of 5 normal BUN creatinine. Troponin less than 3. Labs: Laboratory Results - last 24 hr 09/16/21 09/16/21 09/16/21 16:25 16:25 16:25 WBC 12.4 H RBC 5.04 Hgb 15.4 Hct 43.8 MCV 86.9 MCH 30.6 MCHC 35.2 RDW Std Deviation 40.4 RDW Coeff of Ralph 12.8 Plt Count 342 MPV 8.7 Immature Gran % (Auto) 0.500 Neut % (Auto) 68.9 Lymph % (Auto) 23.8 Taylor % (Auto) 5.9 Eos % (Auto) 0.4 Baso % (Auto) 0.5 Absolute Neuts (auto) 8.5 H Absolute Lymphs (auto) 2.94 Nucleated RBC % 0 D-Dimer Quant (PE/DVT) < 0.27 L Sodium 137 Potassium 3.8 Chloride 106 Carbon Dioxide 26.0 Anion Gap 5 BUN 7 Creatinine 0.83 Estim Creat Clear Calc 102.34 Est GFR (MDRD) Af Amer 130 Est GFR (MDRD) Non-Af 108 BUN/Creatinine Ratio 8.5 L Glucose 87 Calcium 8.8 Troponin I High Sens < 3 L Radiography Chest X-Ray - ED: 1 View, Read by ED Physician, Read by Radiologist, Heart, Lungs, Mediastinum, Bony Structures, No Acute Disease and Chronic Changes Diagnostic Testing: Clinical Impression(s) from Imaging Studies Chest X-Ray 09/16/21 16:33 IMPRESSION: Nonacute portable x-ray examination of the chest. Electronically Signed: Qamar Fenton MD ([place]) at 16:44 EDT Reading Location ID and State: [address] [place] [address] , Service support , Chest x-ray, portable, single view inter by myself shows no acute abnormality. Normal cardiac silhouette. Mediastinum. Also read by the radiologist and agrees. Rhythm Strip Rhythm Strip: Sinus Rhythm Rate: 68 Ectopy: None EKG Initial EKG: Attestation: I personally reviewed and interpreted this EKG as follows: Interpretation: Sinus Rhythm and No Acute Injury Pattern Comments: Normal rhythm rate of [address] no acute signs of [address] GA or ischemia. Patient has no other complaints no [id number]. Discharge Plan Dx/Rx/DC Orders Clinical Impression: Chest pain Disposition Disposition: Acute Care Hospital [facility]
[2021-09-16 17:12] LABS: Anion Gap 5 (5-15); BUN 7 mg/dL (7-18); BUN/Creat Ratio 8.5 RATIO (10-20); Calcium,Total 8.8 mg/dL (8.5-10.1); Chloride 106 mmol/L (98-107); Creatinine, Serum 0.83 mg/dL (0.70-1.30); EST Glomerular Filtration Rate 108 mL/min (>60); Est Glom Filt Rate - Afr Amer 130 mL/min (>60); Estimated Creatinine Clearance 102.34 ml/min; Glucose 87 mg/dL (74-106); Potassium 3.8 mmol/L (3.5-5.1); Sodium Level 137 mmol/L (136-145); Troponin-I HS (w/2H Reflex) < 3 pg/mL (3.0-78.0)
[2021-09-16 17:22] LABS: D-Dimer Quantitative (DVT/PE) < 0.27 FEU/ug/m (0.27-0.49)
--- NOTE | 2021-09-16 17:51 | PCM.HP.STD ---
HPI - General General Date of Admission: 09/16/21 Date of Service: 09/16/21 Chief Complaint: Chest pain with dyspnea, nausea. HPI Narrative The patient is a 41 y/o M w/ PMHx: Former EtOH abuse, Heavy tobacco use, Anxiety and Depression, GERD, Chronic back pain w/ cervical radiculopathy s/p cervical fusion 06/2021 who presents to the [facility] ED on 09/16/21 with history of several years of intermittent midsternal chest discomfort with dyspnea with exertion; however, over the last ~ 2 weeks patient notes that it has become more frequent, still only with exertion with midsternal chest discomfort also rating to the left chest described as severe, stabbing and squeezing in nature, rated 8 out of 10 in severity at its worst with associated dyspnea and nausea with no diaphoresis, improving with rest prompting eventual ED evaluation. In the ED patient appears comfortable but states that he is currently having 6 out of 10 discomfort. He does have some reproducible discomfort to the left chest but states this is not specifically the type of pain he is having. Work-up in the ED included T97.5, heart rate 80, BP 133/76, respiratory rate 18, 98% on room air, CBC with WC 12.4, hemoglobin 15.4, platelet 342 with left shift, D-dimer less than 0.27, BMP unremarkable, initial troponin less than 3, chest x-ray with no acute cardiopulmonary findings, EKG was sinus rhythm with no acute evidence of ischemia. In the ED patient ministered full-strength aspirin therapy. [facility] Medical History Alcohol use Anxiety and depression Cervical radiculopathy Cervical strain Hx of foreign body in auditory canal Injury of head and neck Marijuana use Restless legs Sebaceous cyst of scrotum Smoker Home Medications NK 09/16/21 [History Last Taken Unknown] Allergy/AdvReac Type Severity Reaction Status Date / Time No Known Allergies Allergy Verified 09/16/21 16:14 Family History (Updated 09/16/21 @ 18:[address] Jamia Shukla MD) Mother Diabetes other (Patient does not know any of his paternal family history.) Surgical History (Updated 09/16/21 @ 18:[address] Jamia Shukla MD) History of spinal surgery S/P vasectomy Social History (Updated 09/16/21 @ 18:[address] Jamia Shukla MD) household members: spouse Smoking Status: Current every day smoker tobacco type: cigarettes Smoking packs per day: 2 Smoking cigarettes per day: 40.0 Years smoked: 25 Smoking pack-years: 50.00 alcohol intake: former details: Sober x 8 years. substance use type: former substance user Date of last use: Cannabis. ROS ROS Narrative Admission Review of Systems: CONSTITUTIONAL: No weight loss, fever, chills, + weakness or fatigue. HEENT: Eyes: No visual loss, blurred vision, double vision or yellow sclerae. Ears, Nose, Throat: No hearing loss, sneezing, congestion, runny nose or sore throat. SKIN: No rash or itching, lesions, wounds. CARDIOVASCULAR: + chest pain, chest pressure or chest discomfort, No palpitations, edema, orthopnea, syncopal events. RESPIRATORY: + Exertional shortness of breath, No cough or sputum, wheezing, hemoptysis. GASTROINTESTINAL: + Episodes nausea with CP, No anorexia, vomiting or diarrhea, abdominal pain, melena, BRBPR. GENITOURINARY: No dysuria, frequency, urgency or retention. NEUROLOGICAL: No headache, dizziness, syncope, paralysis, ataxia, numbness or tingling in the extremities, focal weakness, change in bowel or bladder control, seizure. MUSCULOSKELETAL: No muscle, back pain, joint pain or stiffness. HEMATOLOGIC: No anemia, bleeding or bruising. LYMPHATICS: No enlarged nodes. No history of splenectomy. PSYCHIATRIC: No history of depression or anxiety. ENDOCRINOLOGIC: No reports of sweating, cold or heat intolerance. No polyuria or polydipsia. ALLERGIES: No history of asthma, hives, eczema or rhinitis. Vital Signs Vital Signs Vital Signs: 09/16/21 16:13 09/16/21 16:30 09/16/21 17:00 Temperature 97.5 F L Temperature Source Temporal Pulse Rate 80 63 61 Respiratory Rate 18 18 16 Respiratory Effort Normal Non-Labored Blood Pressure 133/76 H 119/81 H 116/84 H Blood Pressure Mean 95 93 94 Pulse Ox 98 97 Oxygen Delivery Method Room Air Room Air Weight Weight: 139 lb Body Mass Index (BMI) 20.5 Physical Exam Narrative Physical Examination: General: Awake, alert, oriented x 3 and cooperative, seated upright in the ED bed, no acute distress, appears comfortable but notes discomfort 6 out of 10. Skin: Normal color, normal turgor, no icterus, no cyanosis. HEENT: AT/NC, EOMI, PERRLA, MMM, no carotid bruits or JVD noted. Lungs: Mildly diminished, greater bases, appropriate effort, no rales, ronchi or wheezing. Heart: Currently regular rate and rhythm; no gallop, rub audible some discomfort to palpation of the left anterior chest, . Abdomen: Soft, NTTP, ND, normal BS, no HSM. Extremities: No cyanosis, clubbing, or edema. Neurological: Patient awake, alert, oriented as noted, cognitive function intact; pupils equally reactive to light and accommodation, cranial nerves II-XII grossly normal, moving all 4 extremities, no focal deficits, strength preserved. Psychiatric: Affect appears flat, no acute evidence of depressive or anxiety feelings. Results Lab / Micro Data Result Diagrams: 09/16/21 16:25 09/16/21 16:25 Labs: Laboratory Results - last 24 hr 09/16/21 16:25: WBC 12.4 H, RBC 5.04, Hgb 15.4, Hct 43.8, MCV 86.9, MCH 30.6, MCHC 35.2, RDW Std Deviation 40.4, RDW Coeff of Ralph 12.8, Plt Count 342, MPV 8.7, Immature Gran % (Auto) 0.500, Neut % (Auto) 68.9, Lymph % (Auto) 23.8, Cooper % (Auto) 5.9, Eos % (Auto) 0.4, Baso % (Auto) 0.5, Absolute Neuts (auto) 8.5 H, Absolute Lymphs (auto) 2.94, Nucleated RBC % 0 09/16/21 16:25: Sodium 137, Potassium 3.8, Chloride 106, Carbon Dioxide 26.0, Anion Gap 5, BUN 7, Creatinine 0.83, Estim Creat Clear Calc 102.34, Est GFR (MDRD) Af Amer 130, Est GFR (MDRD) Non-Af 108, BUN/Creatinine Ratio 8.5 L, Glucose 87, Calcium 8.8, Troponin I High Sens < 3 L 09/16/21 16:25: D-Dimer Quant (PE/DVT) < 0.27 L Rhythm Strip Rhythm Strip: Sinus Rhythm Rate: 68 Ectopy: None Radiology Impression Chest X-Ray 09/16/21 16:33 IMPRESSION: Nonacute portable x-ray examination of the chest. Electronically Signed: Qamar Fenton MD (Brooks) at 16:44 EDT Reading Location ID and State: [address] [place] [address] , Service support , Assessment & Plan Assessment/Plan (1) Chest pain: QUALIFIERS: Chest pain type: unspecified Qualified Code(s): R07.9 - Chest pain, unspecified PLAN: The patient is a 41 y/o M w/ PMHx: Heavy tobacco use, Anxiety and Depression, GERD, Chronic back pain w/ cervical radiculopathy s/p cervical fusion 06/2021 who presents to the [facility] ED on 09/16/21 with history of several years of intermittent midsternal chest discomfort with dyspnea with exertion; however, over the last ~ 2 weeks patient notes that it has become more frequent, still only with exertion with midsternal chest discomfort also rating to the left chest described as severe, stabbing and squeezing in nature with dyspnea and nausea. #1. Chest Pain: EKG in ED sinus rhythm with no acute evidence of, CXR w/ no acute cardiopulmonary finding, initial trop normal x1. Will admit to PCU to be cautious, place on a monitored bed to assure no acute myocardial infarction with serial cardiac enzymes and EKGs. If repeat serial enzymes and EKGs remain unremarkable will pursue a.m. cardiac stress echo. Magnesium level requested. FLP in AM. Will maintain on baby aspirin. UDS requested. NG as needed. #2. Chronic neck pain with radiculopathy: Status post 06/2021 cervical fusion, encourage continued outpatient follow-up. #3. Anxiety and depression: Not on any regimen, encourage continued outpatient follow-up with counseling/medications if appropriate. #4. Tobacco Abuse: Encouraged cessation, inpatient consultation per RT, NR if desired. #5. GERD: We will maintain on famotidine. #6. DVT prophylaxis: SCDs, Lovenox. Charges/Coding Visit Charges OBSV E&M: 16171 Initial observation care L3
[2021-09-16 18:20] LABS: Magnesium 2.2 mg/dL (1.6-2.6)
--- NOTE | 2021-09-16 18:20 | EKG12_ITS ---
Test Reason : CP Blood Pressure : / mmHG Vent. Rate : 063 BPM Atrial Rate : 063 BPM P-R Int : 134 ms QRS Dur : 080 ms QT Int : 394 ms P-R-T Axes : 032 066 068 degrees QTc Int : 403 ms Normal sinus rhythm Nonspecific T wave abnormality Abnormal ECG When compared with ECG of 16-SEP-2021 19:55, MANUAL COMPARISON REQUIRED, DATA IS UNCONFIRMED Confirmed by MALINA MARTIN, KAMERON ([id number]), fashion editor ISHMAEL LESLIE ([id number]) on 09/18/2021 9:51:24 AM Referred By: DR DANG Confirmed By:KAMERON RADFORD MD
[2021-09-16 18:40] LABS: Reflex Troponin-HS? (from REC) Y
[2021-09-16 20:14] LABS: Troponin-I HS < 3 pg/mL (3.0-78.0)
[2021-09-16] MEDS: Famotidine 20 MG Tablet PO (22:56)
--- NOTE | 2021-09-16 22:59 | EKG12_ITS ---
Test Reason : AM EKG Blood Pressure : / mmHG Vent. Rate : 064 BPM Atrial Rate : 064 BPM P-R Int : 146 ms QRS Dur : 082 ms QT Int : 422 ms P-R-T Axes : 059 072 065 degrees QTc Int : 435 ms Normal sinus rhythm with sinus arrhythmia Normal ECG When compared with ECG of 16-SEP-2021 23:09, MANUAL COMPARISON REQUIRED, DATA IS UNCONFIRMED Confirmed by MALINA MARTIN, KAMERON ([id number]), editorial intern ISHMAEL LESLIE ([id number]) on 09/18/2021 9:51:36 AM Referred By: LAURENCE Confirmed By:KAMERON RADFORD MD
[2021-09-16 23:01] LABS: Troponin-I HS < 3 pg/mL (3.0-78.0)
[2021-09-16] MEDS: 0.9% Normal Saline 1,000 ML 100 ML IV (23:13)
--- NOTE | 2021-09-16 23:20 | NURSING ---
received report from cecy hackett, pt appears to be sleeping, resp equal, call light within reach,
[2021-09-17] VITALS (8 sets, daily range): BP systolic 104–105; BP diastolic 66–69; PULSE 57–77; RESP 18; TEMP 36.3–37; O2SAT 96–97
[2021-09-17 05:38] LABS: Absolute Lymphocyte Count 3.89 X10^3/uL (0.83-4.51); Absolute Neutrophil Count 6.3 X10^3/uL (2.0-7.7); Basophil# 0.04 X10^3/uL; Basophil% 0.4 % (0-1); Eosinophil# 0.12 X10^3/uL; Eosinophils% 1.1 % (0-5); Hematocrit 41.4 % (40-54); Lymphocyte # 3.89 X10^3/ul (0.83-4.51); Lymphocyte % 34.7 % (19-41); Mean Corp Hgb Conc 33.8 g/dL (32-36); Mean Corpuscular Hgb 30.3 pg (27.0-32.0); Mean Corpuscular Volume 89.6 fL (80-94); Mean Platelet Vol. 8.9 fl (6.2-12.0); Monocyte# 0.81 X10^3/uL; Monocyte% 7.2 % (0-10); NRBC Flagged by Analyzer 0 % (0-5); Neutrophil % 56.2 % (47-70); Platelet Count 291 K/mm3 (150-450); RBC Distribution Width CV 12.8 % (11.6-14.6); RBC Distribution Width SD 42.5 fl (35.1-43.9); Red Blood Count 4.62 M/mm3 (4.6-6.2); White Blood Count 11.2 K/mm3 (4.4-11.0)
--- NOTE | 2021-09-17 05:55 | EKG12_ITS ---
Test Reason : CP ADMIT Blood Pressure : / mmHG Vent. Rate : 072 BPM Atrial Rate : 072 BPM P-R Int : 152 ms QRS Dur : 082 ms QT Int : 392 ms P-R-T Axes : 063 069 068 degrees QTc Int : 429 ms Normal sinus rhythm Nonspecific T wave abnormality Abnormal ECG When compared with ECG of 16-SEP-2021 16:29, MANUAL COMPARISON REQUIRED, DATA IS UNCONFIRMED Confirmed by MALINA MARTNI, KAMERON ([id number]), makeup editor ISHMAEL LESLIE ([id number]) on 09/18/2021 9:51:48 AM Referred By: DR DANG Confirmed By:KAMERON RADFORD MD
--- NOTE | 2021-09-17 05:55 | STEWCON_ITS ---
Reason For Study: CHEST PAIN Stress Results Protocol: Johnny Protocol WITH DEFINITY Maximum Predicted HR: 177 bpm Target HR: 150 bpm % Maximum Predicted HR: 82 % DurationHeart Rate Stage (mm:ss) (bpm) BP Comment BASELINE 60 100/646CC DEFINITY FOR ENTIRE TEST STAGE 1 3:00 96 112/70 STAGE 2 3:00 109 122/58 STAGE 3 3:00 120 114/64 STAGE 4 1:19 146 / Increased discomfort to left shoulder neck I'm done RECOVERY 73 102/70 Stress Duration: 10:19 mm:ss Maximum Stress HR: 146 bpm Baseline Echocardiogram Findings Stress Echo Wall motion Data Resting WM Intermediate WM Stress WM ECHO/Stress Test Echo W/Contrast Interpretation Summary Exercise stress echo. 41-year-old male with a history of chest pain. Resting EKG demonstrates normal sinus rhythm with a rate of 59 bpm resting bloo d pressure is 100/64 mmHg. The patient exercised according to regular Johnny protocol for total durat ion of 10 minutes and 19 seconds. The maximum heart rate attained was 146 bpm which was 80% of max im pact at heart rate the maximum workload was 13.4 metabolic equivalents. The patient maintained sin us rhythm throughout the recording. At rest there were no ST or T wave changes noted suggest ischemi a and at peak exercise upsloping ST changes were noted with did not meet the criteria for isc hemia. The patient complained of chest and neck discomfort throughout the test. No EKG changes cor roborated the above. The peak blood pressure was 122/58 mmHg which was excellent blood pressure resp onse to exercise. Stress echocardiogram. The resting echocardiogram was performed with Definity enhancement. The estimat ed ejection fraction at rest was approximately 50%. With exercise there was mild improvement in left ventricular function estimated to be about 60% with no new wall motion abnormalities noted. Definity enhancement was utilized. Conclusion: Exercise stress echo with no EKG or echocardiographic criteria for ischemia at a high workload. Ordering Physician: Jamia Shukla Performed By: Radu Núñez RCS
[2021-09-17 06:04] LABS: ALB/GLOB Ratio 1.1 RATIO (0.9-2.4); AST(SGOT) 16 U/L (15-37); Alanine Aminotransfer ALT/SGPT 21 U/L (16-61); Albumin, Serum 3.2 g/dL (3.2-5.0); Alkaline Phosphatase 69 U/L (45-117); Anion Gap 5 (5-15); BUN 10 mg/dL (7-18); BUN/Creat Ratio 13.6 RATIO (10-20); Calcium,Total 7.9 mg/dL (8.5-10.1); Chloride 111 mmol/L (98-107); Cholesterol 170 mg/dL (200); Creatinine, Serum 0.74 mg/dL (0.70-1.30); EST Glomerular Filtration Rate 123 mL/min (>60); Est Glom Filt Rate - Afr Amer 149 mL/min (>60); Estimated Creatinine Clearance 112.88 ml/min; Globulin 2.9 g/dL (2.2-4.2); Glucose 88 mg/dL (74-106); High Density Lipoprotein 31 mg/dL; Potassium 3.7 mmol/L (3.5-5.1); Protein, Total 6.1 g/dL (6.4-8.2); Sodium Level 140 mmol/L (136-145); Triglycerides 67 mg/dL; Very Low Density Lipoprotein 13 mg/dL (5-40)
[2021-09-17] MEDS: 0.9% Normal Saline 1,000 ML 100 ML IV (11:25)
[2021-09-17 11:49] LABS: Amphetamine Urine VISTA NEGATIVE (<1000 ng/mL); Barbiturate Urine VISTA NEGATIVE (< 200 ng/mL); Benzodiazepine Urine VISTA NEGATIVE (< 200 ng/mL); Cocaine Urine VISTA NEGATIVE (< 300 ng/mL); Ecstacy Urine VISTA NEGATIVE (< 500 ng/mL); Methadone Urine VISTA NEGATIVE (< 300 ng/mL); PCP Urine VISTA NEGATIVE (< 25 ng/mL); THC Urine VISTA NEGATIVE (< 50 ng/mL); Vista UDS pH Range 6
--- NOTE | 2021-09-17 12:02 | PCM.DC ---
Discharge Instructions Diet Discharge Diet: No restrictions Activity Discharge Activity: Return to Normal Activity Weight Bearing Status: Weight bearing as tolerated Dressing / Incision Call your doctor if you observe: Fever of 101 or Higher, Numbness or Tingling, Shortness of breath, Dizziness, Chest pain, Increased palpitations (irregular heartbeat) and Calf discomfort Follow Up Care Please Follow Up With: Primary care provider When: Within the next two weeks. Test Results: Test results from this visit will be discussed in further detail at your follow-up appointment, if applicable. Discharge Plan Admission Admit Date/Time: 09/16/21 17:51 Primary Reason for Your Visit: Chest pain Attending Provider: Honorio Alicea Primary Care Provider: Howard Lynch Consulting Providers: Jamia Shukla Discharge Orders/Prescriptions Prescriptions: New pantoprazole [Protonix] 40 mg tablet,delayed release (DR/EC) 40 mg PO DAILY Qty: 30 RF: 0 Referrals / Follow Up: Howard Lynch MD [Primary Care Provider] - Within 2 Weeks Disposition Disposition (needs filled in before D/C Order can be placed): Home, Self Care
--- NOTE | 2021-09-17 14:01 | PHA.DC.MR ---
Pharmacy Service has performed discharge medication reconciliation for this patient. The patient's discharge medication list was reviewed for discrepancies and discrepancies were resolved. Home Medications pantoprazole [Protonix] 40 mg PO DAILY #30 tab 09/17/21
--- NOTE | 2021-09-17 14:51 | PCM.DC.SUM ---
Documented by User: Haroldo ESCOBAR 09/17/21 14:56 Providers Date of Admission: 09/16/21 Date of Discharge: 09/17/21 Primary Care Physician: Dr. Howard Lynch MD Reason For Visit: CHEST PAIN Diagnosis Discharge Diagnosis (1) Chest pain: Status: Acute Code(s): R07.9 - Chest pain, unspecified Qualifiers: Chest pain type: unspecified Qualified Code(s): R07.9 - Chest pain, unspecified Medications at Discharge Home Medications cyclobenzaprine 5 mg PO TID PRN #20 tab 09/17/21 pantoprazole [Protonix] 40 mg PO DAILY #30 tab 09/17/21 Hospital Course Procedures 2-D Echocardiogram and Transthoracic echo Summary of Care Provided Minutes Spent on Discharge: 20 Hospital Course: Patient is a 41-year-old male who was admitted to [facility] on 09/17/2021 unspecified chest pain. Hospital course and management as below. 1) unspecified chest pain/ACS rule out Stress echocardiogram obtained and did not reveal any acute ischemia or infarction. High-sensitivity troponins not elevated. Unclear etiology of patient's chest pain at this time possibly could be diagnosed GERD or musculoskeletal pain given patient's recent spinal fusion. Patient provided Protonix 40mg daily on discharge. Patient is to follow-up with primary care provider within the next 1-2 weeks. Patient seen by Haroldo Talavera PA-C, under the supervision of Dr. Alicea. Time spend on patient care: 20 minutes. Physical Exam Const alert, oriented x3 and no apparent distress HEENT normocephalic, head/scalp atraumatic and hearing grossly normal bilaterally Eyes PERRL, EOMs intact bilaterally and conjunctivae normal Neck no lymphadenopathy, supple and no JVD Resp normal respiratory effort, no retractions and no use of accessory muscles Cardio regular rate, regular rhythm and no JVD GI normal to inspection, nondistended, normoactive bowel sounds and soft to palpation Extremity normal to inspection, full ROM and no clubbing, cyanosis or edema Skin no rashes or lesions noted, no wounds and skin turgor normal Neuro CN's II-XII intact bilaterally Psych affect normal Weight / BMI Weight Weight: 136 lb 10.986 oz Body Mass Index (BMI) 20.2 ABG / Lab / Microbiology Data Result Diagrams: 09/17/21 04:50 09/17/21 04:50 Laboratory: Laboratory Results - last 24 hr 09/16/21 16:25: WBC 12.4 H, RBC 5.04, Hgb 15.4, Hct 43.8, MCV 86.9, MCH 30.6, MCHC 35.2, RDW Std Deviation 40.4, RDW Coeff of Ralph 12.8, Plt Count 342, MPV 8.7, Immature Gran % (Auto) 0.500, Neut % (Auto) 68.9, Lymph % (Auto) 23.8, [place] % (Auto) 5.9, Eos % (Auto) 0.4, Baso % (Auto) 0.5, Absolute Neuts (auto) 8.5 H, Absolute Lymphs (auto) 2.94, Nucleated RBC % 0 09/16/21 16:25: Sodium 137, Potassium 3.8, Chloride 106, Carbon Dioxide 26.0, Anion Gap 5, BUN 7, Creatinine 0.83, Estim Creat Clear Calc 102.34, Est GFR (MDRD) Af Amer 130, Est GFR (MDRD) Non-Af 108, BUN/Creatinine Ratio 8.5 L, Glucose 87, Calcium 8.8, Troponin I High Sens < 3 L 09/16/21 16:25: D-Dimer Quant (PE/DVT) < 0.27 L 09/16/21 16:25: Magnesium 2.2 09/16/21 19:45: Troponin I High Sens < 3 L 09/16/21 22:13: Troponin I High Sens < 3 L 09/17/21 04:50: WBC 11.2 H, RBC 4.62, Hgb 14.0, Hct 41.4, MCV 89.6, MCH 30.3, MCHC 33.8, RDW Std Deviation 42.5, RDW Coeff of Ralph 12.8, Plt Count 291, MPV 8.9, Immature Gran % (Auto) 0.400, Neut % (Auto) 56.2, Lymph % (Auto) 34.7, [place] % (Auto) 7.2, Eos % (Auto) 1.1, Baso % (Auto) 0.4, Absolute Neuts (auto) 6.3, Absolute Lymphs (auto) 3.89, Nucleated RBC % 0 09/17/21 04:50: Sodium 140, Potassium 3.7, Chloride 111 H, Carbon Dioxide 24.0, Anion Gap 5, BUN 10, Creatinine 0.74, Estim Creat Clear Calc 112.88, Est GFR (MDRD) Af Amer 149, Est GFR (MDRD) Non-Af 123, BUN/Creatinine Ratio 13.6, Glucose 88, Calcium 7.9 L, Total Bilirubin 0.20, AST 16, ALT 21, Alkaline Phosphatase 69, Total Protein 6.1 L, Albumin 3.2, Globulin 2.9, Albumin/Globulin Ratio 1.1, Triglycerides 67, Cholesterol 170, LDL Cholesterol 126, VLDL Cholesterol 13, HDL Cholesterol 31 L 09/17/21 11:05: Urine Opiates Screen NEGATIVE, Urine Methadone Screen NEGATIVE, Ur Barbiturates Screen NEGATIVE, Ur Phencyclidine Scrn NEGATIVE, Ur Amphetamines Screen NEGATIVE, MDMA (Ecstasy) Screen NEGATIVE, U Benzodiazepines Scrn NEGATIVE, Urine Cocaine Screen NEGATIVE, U Cannabinoids Screen NEGATIVE, Ur Drug Screen Comment Radiography Diagnostic Testing: Radiology Impression Chest X-Ray 09/16/21 16:33 IMPRESSION: Nonacute portable x-ray examination of the chest. Electronically Signed: Qamar Fenton MD (Brooks) at 16:44 EDT Reading Location ID and State: [address] [place] [address] , Service support , D/C Instructions Discharge Diet: No restrictions Weight Bearing Status: Weight bearing as tolerated Call your doctor if you observe: Fever of 101 or Higher, Numbness or Tingling, Shortness of breath, Dizziness, Chest pain, Increased palpitations (irregular heartbeat) and Calf discomfort Please Follow Up With: Primary care provider When: Within the next two weeks. Meaningful Use Info Meaningful Use Diagnoses (Choose all that apply): None applicable Discharge Plan Admission Admit Date/Time: 09/16/21 17:51 Primary Reason for Your Visit: Chest pain Attending Provider: Honorio Alicea Primary Care Provider: Howard Lynch Consulting Providers: Jamia Shukla Discharge Orders/Prescriptions Prescriptions: New pantoprazole [Protonix] 40 mg tablet,delayed release (DR/EC) 40 mg PO DAILY Qty: 30 RF: 0 cyclobenzaprine 5 mg tablet 5 mg PO TID PRN (Reason: muscle spasm) Qty: 20 RF: 0 Referrals / Follow Up: Howard Lynch MD [Primary Care Provider] - Within 2 Weeks Disposition Disposition (needs filled in before D/C Order can be placed): Home, Self Care Documented by User: Dr. Honorio Alicea MD 09/17/21 16:00 Providers Date of Admission: 09/16/21 Reason For Visit: CHEST PAIN Medications at Discharge Home Medications cyclobenzaprine 5 mg PO TID PRN #20 tab 09/17/21 pantoprazole [Protonix] 40 mg PO DAILY #30 tab 09/17/21 Hospital Course Summary of Care Provided Hospital Course: This patient was seen in conjunction with LUZ Calvo. I have independently interviewed and examined the patient and reviewed pertinent history, examination findings, laboratory and plan of management. I have reviewed the note and agree with the documented findings with the few additional points. In brief, patient is 41-year-old gentleman was admitted for upper chest pain. Patient had recent cervical spine surgery by Dr. Johnson. Patient had C5-C6 fusion with application of anterior spine plate C4-C6 with anterior interbody fusion and insertion of titanium cage on 06/24/2021. Acute coronary syndrome work-up negative. EKG not diagnostic of ischemia. Furthermore, myocardial nuclear stress test was negative. Patient is discharged home. Patient is on ibuprofen low-dose. Flexeril 5 mg 3 times daily as needed and Protonix prescription sent to patient pharmacy patient advised to follow-up with Dr. Johnson. I have discussed my assessment with LUZ Calvo and orders have been reviewed. Physical Exam Narrative Seen and examined. Patient recently had cervical spine surgery by Dr. Johnson through anterolateral approach. He feels neck muscles tight and pain. Patient has upper chest pain, constant musculoskeletal in nature. Patient has reproducible pain. General: Alert, Oriented x3, Cooperative HEENT: Atraumatic, PERRLA, EOMI, Normocephalic Oral: No Gingival or Mucosal Lesions/ Ulcerations Neck: Cervical muscles are tight and mildly tender. Right cervical surgical incision well-healed. Supple, No JVD, Negative Carotid Bruits Lungs: Air entry diminished in bilateral lung bases. No crepitation/rhonchi Cardiovascular: Regular rate, Regular Rhythm, Normal S1, Normal S2, No murmurs Abdomen: Bowel Sounds Present, Soft, Non Tender, Non-Distended : No renal angle tenderness. No suprapubic tenderness. Extremities: No edema, Capillary Refill Less than 3 Seconds Skin: No rashes, No breakdown Musculoskeletal: No Tenderness to Palpation of Joints or Extremities Neurological: Cranial nerves II-XII grossly intact, DTR 2+/4 and Symmetrical, Neuro grossly intact Psych/Mental Status: Normal Affect, Appropriate ABG / Lab / Microbiology Data Result Diagrams: 09/17/21 04:50 09/17/21 04:50 Discharge Plan Admission Admit Date/Time: 09/16/21 17:51 Primary Reason for Your Visit: Chest pain Attending Provider: Honorio Alicea Primary Care Provider: Howard Lynch Consulting Providers: Jamia Shukla Discharge Orders/Prescriptions Prescriptions: New pantoprazole [Protonix] 40 mg tablet,delayed release (DR/EC) 40 mg PO DAILY Qty: 30 RF: 0 cyclobenzaprine 5 mg tablet 5 mg PO TID PRN (Reason: muscle spasm) Qty: 20 RF: 0 Referrals / Follow Up: Howard Lynch MD [Primary Care Provider] - Within 2 Weeks Disposition Disposition (needs filled in before D/C Order can be placed): Home, Self Care Charges/Coding Visit Charges OBSV E&M: 68214 Observation care discharge
== END 2021-09-17 12:04 | disposition home or self-care (01) ==
LOC: ED 17:01 → PCU 18:02
PROVIDERS: Admitting Provider Family Medicine; Emergency Provider Emergency Medicine; PCP Family Medicine; Visit Provider Internal Medicine
DX: R07.9 Chest pain, unspecified (principal); R11.0 Nausea; Z98.1 Arthrodesis status; F17.210 Nicotine dependence, cigarettes, uncomplicated; R06.09 Other forms of dyspnea; M19.90 Unspecified osteoarthritis, unspecified site; K21.9 Gastro-esophageal reflux disease without esophagitis
CPT/HCPCS: 36415; 71045; 80048; 80053; 80061; 80307; 83735; 84484; 85025; 85379; 93005; 93017; 93350; 96360; 96361; 99218; 99285; 99406; J7030; Q9957; A4216; C8928; G0378

== ENCOUNTER 2021-12-10 12:30 | Outpatient (RCR) | payer MEDICAID, SELFPAY ==
--- NOTE | 2021-11-06 16:04 | HP.PTEVAL ---
Patient's Visit Information FRANCHESKA DE LA ROSA is a 41 year old M referred to Physical Therapy by Dr. Jerman Johnson DO with a diagnosis of CERVICAL FUSION. Date of Evaluation: 11/06/21 Physical Therapist: Berto Ellis, PT, Cert MDT, OCS - Visit Plan Frequency: 2x /Week Duration: 4 Weeks Plan: PT INTERVETIONS GRADED CERVICAL ROM,POSTURAL EX'S ,STRENGTHENING BUE AND MODALTIES - Subjective This 41 y/o male presents to physical therapy cervical fusion. Patient underwent s/p cervical fusion anterior interbody fusion C5-6 ,insertion of titanium cage C4-5 on 07/04/21 at [facility] by Dr Johnson d/c next day neck brace. Patient had 2 months cervical soft brace. Patient seen DR couple times. Patient had x-rays after surgery and everything looked good. Then October 25 the recommended PT. Patient had cervical pain with radicular symptoms ,had MRI cervical HNP .Patient is suffering from PTSD with trauma. Patient after surgery symptoms in arms is better, c/o stiffness and weakness . C/O BRADLEY ,occasional dizziness ,no tinnitus. Symptoms affects sleeping. C/O paresthesia cervical spine. Symptoms in neck is burning. Aggravating lifting, pushing ,pulling ,turning and sitting. Alleviating factors ibuproprofin. Patient symptoms affects QOL and function. RTD 4 months. SOCIAL: . VOCATION: unemployed - Pain Bilateral Neck Pain Intensity (Out of 10): 5 Pain Intensity Range: 10 - Objective POSTURE: mild forward head forward. PALAPTION: tender occiput ,paraspinals ,. NEURO: c/o paresthesia neck region. BUE AROM: WFL. MMT (peak force) : anterior deltoid 14.7,lateral 14.9,biceps 22.7 ,triceps 21.3,wrist 15.2. CERVICAL ROM: flexion. [employer] STRENGTH: 70# bilateral. CERVICAL ROM: flexion min. - Special Tests C/S Radiculapathy - Left Upper limb tension test: Negative C/S Radiculapathy - Right Upper limb tension test: Negative Vertebral Artery Test: Negative - Balance/Special Test Scores Oswestry Neck Score: 29 - Goals Goal 1:: Patient to be I with HEP for cervical Goal Time Frame: 4-6 Weeks Goal 2:: Patient to demonstrate 40%-50% to improve function and decrease pain Goal Time Frame: 4-6 Weeks Goal 3:: Patient to cervical ROM for functional of recovery with rotation to turn cervical when driving Goal Time Frame: 4-6 Weeks Goal 4:: Patient to increase peak force of BUE by 5-10 to improve function and ADL's Goal Time Frame: 4-6 Weeks Goal 5:: Patient to improve neck oswestry by points to improve function and ADL's Goal Time Frame: 4-6 Weeks - Rehabilitation Potential Physical Therapy Diagnosis: This patient underwent cervical fusion with current symptoms stiffness and pain in neck but no symptoms in arms ,decrease cervical ROM ,weakness in arms as well comorbidities with PTSD ,anxiety /depression which influences condition thus benefit skilled PT - Anticipated Interventions Patient/Client Instruction: Educate patient on: Condition, Plan of Care For the Purpose of:: To decrease pain, To increase ROM, To improve muscle performance and motor function, To improve ability to perform ADL's, To increase tolerance to activity/condition/position, To improve ability of physical actions for home/community/work/leisure, To improve health of tissue, To decrease soft tissue restriction, To increase flexibility/ROM, To reduce risk of recurrence, To prevent re-injury, To improve tolerance to ADL's Therapeutic Exercise to Include: Strength training, Endurance training, Postural training, Flexibilty training, Active ROM, Scapular Strength/Stabilization Comment: BUE For the Purpose of:: To decrease pain, To increase ROM, To improve muscle performance and motor function, To improve ability to perform ADL's, To increase tolerance to activity/condition/position, To improve ability of physical actions for home/community/work/leisure, To improve health of tissue, To decrease soft tissue restriction, To increase flexibility/ROM, To prevent re-injury, To improve tolerance to ADL's TENS: Yes IF ES: Yes Cryotherapy (ice pack, ice massage): Yes Thermo therapy (hot pack): Yes Ultrasound (thermal/non thermal): Yes For the Purpose of:: To decrease pain, To decrease swelling/inflammation, To improve nutrient delivery to tissue, To increase oxygenation perfusion, To improve health of tissue, To decrease soft tissue restriction Thank you for the opportunity to evaluate your patient. For Medicare and Medicare HMO plans, please review the plan of care and approve it. It will need to be FAXED BACK to us at [phone] for Medicare purposes. For Medicare only, by signing this I certify the plan of care. Please let me know if there are questions or concerns regarding this plan of care. Physician Signature: Date:
== END 2021-12-10 19:00 | disposition home or self-care (01) ==
LOC: PT 12:30
PROVIDERS: PCP Family Medicine; Referring Provider Orthopaedic Surgery; Visit Provider Orthopaedic Surgery
DX: Z98.1 Arthrodesis status (principal); F43.10 Post-traumatic stress disorder, unspecified
CPT/HCPCS: 97110; 97162

== ENCOUNTER → 2022-08-07 | Outpatient (CLI) | payer MEDICAID, SELFPAY ==
--- NOTE | 2022-08-07 15:41 | MRI_ITS ---
STUDY: MRI THORACIC SPINE WITHOUT CONTRAST REASON FOR EXAM: Male, 42 years old. Pain TECHNIQUE: Standardized fat and water weighted pulse sequences were obtained in the sagittal and axial planes. COMPARISON: None. FINDINGS: Normal kyphosis of the thoracic spine. There is no substantial scoliosis. No evidence for acute fracture or other significant bony pathology. Tiny left paracentral disc protrusion at T4-5 without significant narrowing the spinal canal or cord compression. There is narrowing of the disc spaces at T7-8 and T8-9 demonstrating disc degeneration without disc protrusion or spinal stenosis.. Normal visualized thoracic cord. Normal conus medullaris that terminates at T12-L1 The soft tissue structures are unremarkable. MRI/Spine Thoracic (Routine) IMPRESSION: No evidence for acute fracture or other significant bony pathology. Mild degenerative changes and degenerative disc disease. Tiny left paracentral disc protrusion at T4-5 without significant spinal stenosis or cord compression Electronically Signed: Edgar Spence MD at 17:50 EDT ,
--- NOTE | 2022-08-07 15:41 | MRI_ITS ---
STUDY: MRI CERVICAL SPINE WITHOUT CONTRAST REASON FOR EXAM: Male, 42 years old. Pain TECHNIQUE: Standardized fat and water weighted pulse sequences were obtained in the sagittal and axial planes. COMPARISON: June 12, 2021 FINDINGS: Normal foramen magnum and brainstem-cervical cord junction. Normal craniovertebral junction. Normal anterior atlantoaxial articulation. Normal odontoid process. Normal cervical lordosis. Normal vertebral bodies and posterior osseous elements. C2-3: Normal endplates. Normal disc height, signal and morphology. Normal central canal and intervertebral neural foramina. C3-4: Normal endplates. Normal disc height, signal and morphology. Normal central canal and intervertebral neural foramina. C4-5: Status post fusion with disc spacer placement.. Normal central canal. Moderate bilateral neural foraminal encroachment secondary to bony hypertrophy C5-6: Status post fusion with disc spacer placement.. Normal central canal. Moderate bilateral neural foraminal stenosis secondary to bony hypertrophy C6-7: Normal endplates. Normal disc height, signal and morphology. Normal central canal and intervertebral neural foramina. C7-T1: Normal endplates. Normal disc height, signal and morphology. Normal central canal and intervertebral neural foramina. Normal cervical cord. Normal visualized soft tissue structures. No significant interval change since previous study other than postsurgical changes MRI/Spine Cervical (Routine) IMPRESSION: No evidence for acute fracture or other bony pathology.. Postsurgical changes at C4-5 and C5-6 with bilateral neural foraminal stenosis at each level due to bony hypertrophy.. Electronically Signed: Edgar Spence MD at 17:46 EDT ,
== END | disposition home or self-care (01) ==
LOC: MRI 15:35
PROVIDERS: PCP Family Medicine
DX: Z98.1 Arthrodesis status (principal); M54.6 Pain in thoracic spine
CPT/HCPCS: 72141; 72146